=== PATIENT | male | born 1955 | race Caucasian/White ===

== ENCOUNTER 2017-05-19 08:03 | Day surgery (SDC) | payer OTHER, SELFPAY ==
[2017-05-14 10:43] VITALS: BMI 17.9
[2017-05-19 08:27] VITALS: BP 128/71; PULSE 58; RESP 18; TEMP 36.6; O2SAT 94
[2017-05-19 09:25] VITALS: O2SAT 98
[2017-05-19 09:55] VITALS: BP 99/57; PULSE 60; RESP 16; TEMP 36.4; O2SAT 100
--- NOTE | 2017-05-19 10:00 | P.PCN_ITS ---
[facility] Procedure Note Procedure Note:: Colonoscopy Procedure Report: Colonoscopy with cold snare polypectomy and cold biopsies Endoscopist: Henri Soliz II, MD Referring physician: Froy Huerta MD Date of Procedure: May 19, 2017 Equipment: Olympus 180 variable stiffness pediatric colonoscope Sedation: MAC sedation Indication: Mr. Hawley is a 61-year-old gentleman with chronic diarrhea and lymphocytic colitis. His last colonoscopy was November 2004. He did improve with Entocort and has used this as maintenance therapy for the last 13 years. He has one bowel movement daily as long as he takes budesonide. He smokes 3-5 cigarettes daily and reports no alcohol use since February 2017. He reports no abdominal pain, rectal bleeding, change in bowel habits or family history of colon cancer. Procedure: Prior to the procedure, a history and physical exam was performed, and patient' s medications and allergies were reviewed. The risks, benefits and alternatives of the sedation and procedure were discussed with the patient. All questions were answered and informed consent was obtained. The patient was brought to the procedure room. Patient identification and proposed procedure were verified by the physician and the nurse. The patient was placed in a left lateral decubitus position and the scope was passed under direct vision. Throughout the procedure, the patient's blood pressure, pulse, and oxygen saturations were monitored continuously. The colonoscopy was accomplished without difficulty. The patient tolerated the procedure well. Findings: On digital rectal examination there was normal rectal tone. There were no external hemorrhoids. The prostate was 2+, mildly firm but symmetric without nodules. The colonoscope was introduced through the anal canal to the rectum and advanced to the cecum. The ileocecal valve and appendiceal orifice were identified. The scope was advanced a short distance into the ileum which appeared grossly normal. The scope was then withdrawn into the colon. There were 2 diminutive colon polyps identified in the cecum and descending (placed in the same formalin jar). These ranged in size from 3-4 mm and were all removed via cold snare polypectomy. Cold biopsies were taken from the ascending colon ?4 to rule out lymphocytic or collagenous colitis. The remaining cecum, ascending, transverse, descending, sigmoid and rectum were grossly normal. There were no other mucosal abnormalities identified. Upon retroflexion within the rectum there were grade 1 internal hemorrhoids. Impression: 1. Diminutive colonic polyps ?2 2. Grade 1 internal hemorrhoids Plan: I will continue budesonide as maintenance therapy and follow up the biopsies. I will follow up the polyp pathology and recommend repeat colonoscopy again in 5 years based upon the polyp histology. The patient did have femoral artery stenosis (40 and 60% on bilateral femorals respectively) and his father had carotid artery disease. Given the fact that he is still a smoker and with these risk factors, I would consider calcium score CT scan of the neck, chest and abdomen as well as cardiology evaluation.
[2017-05-19 10:05] VITALS: BP 124/64; PULSE 55; RESP 18; O2SAT 100
[2017-05-19 10:15] VITALS: BP 142/70; PULSE 53; RESP 18; O2SAT 100
[2017-05-19 10:45] VITALS: BP 150/80; PULSE 47; RESP 18; O2SAT 100
--- NOTE | 2017-05-19 15:37 | P.PN_ITS ---
[facility] Anesthesia Checklist - Patient Identification Patient Identification: Arm Band - Structural Data Admitted From: Home Planned Operative Procedure/s: colonoscopy Consent for Planned Operative Procedure(s) Verified: Yes Verified Documents: Surgical Consent, History and Physical - NPO Status Verified Time NPO: 00:00 - Additional verifications Anesthesia Reactions: No - Airway Assessment C-Spine Mobility Assessed: Yes (mp2) TMJ Mobility Assessed: Yes Dentition: Good Dentition - Neurological Assessment Level of Consciousness: Awake, Alert - Anesthesia Plan Anesthesia Risk discussed: Yes Anesthesia Plan: Verified ASA Class: II Anesthesia Type: MAC [facility] Anesthesia HX I have reviewed the patient's past medical history: Yes Medical History: Denies:: Diabetes Mellitus Type 1, Diabetes Mellitus Type 2, Internal Pacemaker, Lung Disease, Seizures Laterality Cases: Bilateral: Tonsillectomy Other Surgeries: Yes: Appendectomy. No: Pacemaker
== END 2017-05-19 10:45 | disposition home or self-care (01) ==
PROVIDERS: PCP Internal Medicine; Visit Provider Internal Medicine Gastroenterology
PROC: 0DJD8ZZ Inspection of Lower Intestinal Tract, Via Natural or Artificial Opening Endoscopic (ICD-10-PCS; CPT 45378; principal; 2017-05-19 09:00)
DX: K52.832 Lymphocytic colitis (principal); K52.9 Noninfective gastroenteritis and colitis, unspecified; K63.5 Polyp of colon; K64.0 First degree hemorrhoids
CPT/HCPCS: 45380; 45385

== ENCOUNTER 2021-10-25 00:09 | Emergency (ER) | payer MEDICARE, OTHER, SELFPAY ==
[2021-10-25 00:11] VITALS: BP 147/79; PULSE 62; RESP 20; TEMP 36.9; O2SAT 97; BMI 17.4
--- NOTE | 2021-10-25 00:48 | HMH.EDWNDL ---
Discharge Plan Disposition Patient Disposition: Home, Self-Care Prescriptions Prescriptions: New cephalexin [cephalexin] 500 mg capsule 500 mg PO TID Qty: 30 0RF No Action budesonide 3 MG capsule,delayed,extend.release 3 mg PO DAILY Referrals Follow up/Referrals: Froy Huerta MD [Primary Care Provider] - See instructions Clinical Impressions Clinical Impression: Laceration Instructions Patient Instructions: DI for Laceration Repair Discharge ED Provider: Abhilash Martínez Wound/Laceration HPI General Chief Complaint: Wound/Laceration Stated Complaint: AO 10/24/21 1730 Injury to lower lip Time Seen by Provider: 10/25/21 00:48 Mode of Arrival: Family Vehicle Source of Information: Patient and Medical Record Limitations: No Limitations Description of Symptoms (Recalled from ER Triage Doc. by RN): Pt c/o lower lip lac. States he was cutting a tree limb whne it bit his mouth. This occured around 1730 10/24. He takes Plavix. States it has not stopped bleeding. History of Present Illness HPI narrative: mouth lac after hit by tree limb with ongoing bleeding Onset (ago): hour(s) Location: other (oral) Place: home Patient tetanus UTD: Yes Context: accidental Related Data Home Medications Medication Instructions Recorded Confirmed budesonide 3 mg 3 mg PO DAILY BOWELS 05/19/17 05/19/17 capsule,delayed,extended release Previous Rx's Medication Instructions Recorded cephalexin 500 mg capsule 500 mg PO TID #30 caps 10/25/21 Allergies Allergy/AdvReac Type Severity Reaction Status Date / Time No Known Allergies Allergy Verified 05/19/17 08:25 PFSH PFSH Social History Smoking Status: Current some day smoker alcohol intake: never current occupational status: employed caffeine: Yes ROS Obtained: Yes All systems reviewed & no additional complaints except as documented Physical Exam General General appearance: alert Head Head exam: normocephalic Eye Eye exam: Present PERRL and EOMI Expanded ENT Exam Mouth exam: Present laceration Neck Neck exam: Present full ROM and trachea midline Respiratory Respiratory exam: Absent respiratory distress Cardiovascular Cardiovascular exam: Present regular rate Extremities Exam Extremities exam: Present full ROM Neurological Exam Neurological exam: Present alert, oriented X3 and CN II-XII intact Psychiatric Psychiatric exam: Present normal affect Skin Skin exam: Absent rash Other Other exam information: 1 cm lt lower inner lip lac Medical Decision Making Medical Records Medical records reviewed: Yes I reviewed the patient's medical records. David Inquiry Pt receiving controlled substance: No Vital Signs: 10/25/21 00:11 Temperature 98.5 F Temperature Source Oral Pulse Rate [Right] 62 Respiratory Rate 20 Blood Pressure [Right Arm] 147/79 H Blood Pressure Mean [Right Arm] 101 Blood Pressure Source [Right Arm] Automatic Cuff 02 Sat by Pulse Oximetry 97 Oxygen Delivery Method Room Air Lab Data Lab results reviewed: Yes I reviewed the patient's lab results. Medical Decision Narrative: will suture as has persistent bleeding Procedures Laceration Laceration 1: Site: other (inner lip ) Side (If applicable): left Size (cm): 1 Description: linear Depth: involves subcutaneous layer Local Anesthetic: lidocaine 1% Amount of anesthesia used (mL): 2 Pre-repair: deep structures intact Skin layer closed with: vicryl Size (cm): 5-0 Number of sutures: 2 Technique: simple, interrupted Critical Care Time Critical Care Time Critical Care Time: No Attestation: The high probability of a clinically significant, sudden or life threatening deterioration of the [] system(s) required my full and direct attention, intervention and personal management. The aggregate critical care time was [] minutes. This time is in addition to time spent performing
[2021-10-25 01:00] VITALS: BP 149/73; PULSE 74; RESP 17; TEMP 36.7; O2SAT 95
== END 2021-10-25 01:03 | disposition home or self-care (01) ==
PROVIDERS: Emergency Provider Emergency Medicine; PCP Internal Medicine
DX: S01.511A Laceration without foreign body of lip, initial encounter (principal); W20.8XXA Other cause of strike by thrown, projected or falling object, initial encounter
CPT/HCPCS: 12011; 99283

== ENCOUNTER 2022-06-14 13:21 | Emergency (ER) | payer MEDICARE, OTHER, SELFPAY ==
[2022-06-14 13:40] VITALS: BP 141/86; PULSE 80; RESP 18; TEMP 36.8; O2SAT 97; BMI 17.9
[2022-06-14 13:41] VITALS: BP 141/86; PULSE 80; RESP 18; O2SAT 97; BMI 17.9
--- NOTE | 2022-06-14 13:49 | XR_ITS ---
FINAL REPORT CLINICAL HISTORY: HIT CABAN WITH PIECE OF WOOD COMPARISON: None FINDINGS: Two views of the left tib-fib were obtained. There is no acute fracture or dislocation. The joint spaces are intact. There is no soft tissue abnormality. IMPRESSION: No acute fracture Reviewed, Interpreted and Dictated by Monroe Barone III, MD Transcribed by Brenna Deal Authenticated and [facility]
--- NOTE | 2022-06-14 14:09 | EXP.UTC ---
Discharge Plan Referrals Follow up/Referrals: Froy Huerta MD [Primary Care Provider] - See instructions Activity Restrictions/Add. Instructions Additional Instructions/Restrictions: Rest, ice, compression, elevation Clinical Impressions Clinical Impression: Contusion of left lower leg Instructions Patient Instructions: DI for Contusion Discharge ED Provider: Rebecca Silverio [facility] HPI General Stated complaint: AO@home 06/13 LT fibula pain Mode of Arrival: Ambulatory Source of Information: Patient Limitations: No Limitations Time Seen by Provider: 06/14/22 14:21 Description of Symptoms (Recalled from Triage Doc. by RN): c/o left kc pain/swelling after hitting it with a piece of wood while splitting, incident occured yesterday around 1500 History of Present Illness Provider Complaint: Patient was splitting wood yesterday and struck left kc with wood. Has pain, swelling. It has caused him to limp. He twisted his knee a bit when he fell and was worried about his meniscus, but that seems to be feeling better. He has had leg iced since this occurred. He does take Plavix. Onset (ago): day(s) (1) Location: left and lower extremity Radiation: non-radiation Relieving factors: none Exacerbating factors: none Treatments prior to arrival: cold therapy Related Data Allergies Allergy/AdvReac Type Severity Reaction Status Date / Time No Known Allergies Allergy Verified 06/14/22 13:49 Worker's Comp Is this a Worker's Comp case?: No [facility] Disclaimer: The information contained in this section may have been updated after the patient was seen, as this information can be updated by other users. Social History Smoking Status: Former smoker alcohol intake: never current occupational status: retired Travel in the last 8 weeks: None ROS Obtained: Yes All systems reviewed & no additional complaints except as documented Musculoskeletal Musculoskeletal: Reports system reviewed and no additional complaints, except as documented and Reports as per HPI Physical Exam General General appearance: alert and in no apparent distress Head Head exam: atraumatic, normocephalic and normal inspection Respiratory Respiratory exam: Present normal lung sounds bilaterally; Absent respiratory distress Cardiovascular Cardiovascular exam: Present regular rate and normal rhythm; Absent JVD Extremities Exam Extremities exam: Present normal inspection, full ROM, tenderness, normal capillary refill and edema; Absent calf tenderness Expanded Lower Extremity Exam Left: Lower leg exam: Present tenderness, swelling and abrasion Gait: observed and limited by pain Back Exam Back exam: Present normal inspection; Absent tenderness Neurological Exam Neurological exam: Present alert and oriented X3 Psychiatric Psychiatric exam: Present normal affect and normal mood Skin Skin exam: Present warm, dry, intact and normal color Lymphatic Lymphatic Findings: no adenopathy Medical Decision Making David Inquiry Pt receiving controlled substance: No Vital Signs: 06/14/22 13:41 06/14/22 13:40 Temperature 98.2 F Temperature Source Oral Pulse Rate [Left Radial] 80 80 Respiratory Rate 18 18 Blood Pressure [Right Arm] 141/86 H 141/86 H Blood Pressure Mean [Right Arm] 104 104 Blood Pressure Source [Right Arm] Automatic Cuff Blood Pressure Position [Right Arm] Sitting 02 Sat by Pulse Oximetry 97 97 Oxygen Delivery Method Room Air Room Air Orders (Tests/Meds): ORDERS Category Date Time Status Tibia/fibula XR left 2 views [XR tibia fibula LT 2V] Exams 06/14/22 13:49 Taken Stat Radiology Data #1: Image(s): Tib/Fib Image Reviewed: Yes I reviewed the patient's radiology image Preliminary Findings: Normal/NAD and No Fracture Seen
[2022-06-14 14:38] VITALS: BP 141/86; PULSE 80; RESP 18; TEMP 36.8
== END 2022-06-14 14:39 | disposition home or self-care (01) ==
PROVIDERS: Emergency Provider Physician Assistant; PCP Internal Medicine
DX: S80.12XA Contusion of left lower leg, initial encounter (principal); W22.8XXA Striking against or struck by other objects, initial encounter; Z87.891 Personal history of nicotine dependence
CPT/HCPCS: 73590; 99204; 99212; G0463

== ENCOUNTER → 2022-08-13 09:52 | Outpatient (CLI) | payer MEDICARE, OTHER, SELFPAY ==
--- NOTE | 2022-08-13 09:52 | MR_ITS ---
FINAL REPORT CLINICAL HISTORY: stress fracture possible fracture from june 13 in mid lower leg , pt was splitting wood FINDINGS: Multiplanar MR imaging of the left lower leg was performed without contrast. There is extensive abnormal marrow edema within the intramedullary space of the proximal tibial diaphysis. Abnormality spans over a 12 cm segment area there are rounded decreased signal foci within the edema that may be a permeative process. There is no discrete linear abnormality. There is no soft tissue mass surrounding the proximal tibia. IMPRESSION: Extensive abnormal marrow edema in the proximal tibial diaphysis. Differentials would include infectious or neoplastic etiologies. Recommend correlation with any known history of malignancy. Osteomyelitis would be another consideration. Pattern is not entirely typical or stress reaction. Reviewed, Interpreted and Dictated by Natan Caceres MD Transcribed by Zaire Cristobal Authenticated and [facility]
== END ==
PROVIDERS: PCP Internal Medicine; Visit Provider Orthopaedic Surgery
DX: S80.12XA Contusion of left lower leg, initial encounter (principal); M79.662 Pain in left lower leg
CPT/HCPCS: 73718

== ENCOUNTER → 2022-09-02 08:57 | Outpatient (CLI) | payer MEDICARE, OTHER, SELFPAY ==
[2022-09-02 09:54] LABS: Blood Urea Nitrogen 9 mg/dl (9-20); Estimated Glomerular Filt Rate 112 ml/min (>60); GFR (African American) 136 ML/MIN (>60)
== END ==
PROVIDERS: PCP Internal Medicine; Visit Provider Orthopaedic Surgery
DX: Z01.812 Encounter for preprocedural laboratory examination (principal); R93.6 Abnormal findings on diagnostic imaging of limbs
CPT/HCPCS: 36415; 82565; 84520

== ENCOUNTER → 2022-09-13 09:45 | Outpatient (CLI) | payer MEDICARE, OTHER, SELFPAY ==
--- NOTE | 2022-09-13 09:46 | MR_ITS ---
FINAL REPORT CLINICAL HISTORY: LT leg pain INJURY ON May BB MARKER PLACED ON SPOT OF INTREST PER PATIENT 12 ML PROHANCE GIVEN COMPARISON: 08/21/2022 FINDINGS: MR examination left lower leg with and without contrast: There is improved bone marrow edema involving the proximal and mid left tibia when compared to the prior exam of August 16. There is no periosteal reaction identified. There is no convincing soft tissue mass present in the lower leg. The signal within the muscles of the lower leg is unremarkable. There is no fluid collection and the soft tissues. After the administration of intravenous contrast there is enhancement of the bone marrow in the areas of bone marrow edema. There is no enhancing intraosseous mass, and the soft tissues of the left calf do not reveal any abnormal enhancement. IMPRESSION: There is improvement in the abnormal signal in the bone marrow of the proximal mid tibia. Would favor improving osteomyelitis. No history of malignancy was provided, although treatment related changes of malignancy could have this appearance. Traumatic contusion presumably would have shown more improvement by this stage. . Reviewed, Interpreted and Dictated by Laurie Kelly MD Transcribed by Tia Abad Authenticated and . [facility]
== END ==
PROVIDERS: PCP Internal Medicine; Visit Provider Orthopaedic Surgery
DX: S80.12XA Contusion of left lower leg, initial encounter (principal)
CPT/HCPCS: 73720; A9576

== ENCOUNTER → 2023-01-08 14:46 | Outpatient (CLI) | payer MEDICARE, OTHER, SELFPAY ==
--- NOTE | 2023-01-08 14:47 | MR_ITS ---
FINAL REPORT CLINICAL HISTORY: lt tib fib pain COMPARISON: 09/13/2022 FINDINGS: Multiplanar MR imaging of the left lower leg was performed without contrast. There is persistent mild abnormal activity in the proximal tibial diaphysis but considerably improved over previous. No bony mass is identified. The musculature is intact. No localized soft tissue inflammation is identified. No soft tissue mass or cyst is identified. IMPRESSION: Persistent but improved abnormal signal in the proximal tibial diaphysis, probably related to resolving stress reaction or resolving infection. Reviewed, Interpreted and Dictated by Natan Caceres MD Transcribed by Brenna Deal Authenticated and [facility]
== END ==
PROVIDERS: PCP Internal Medicine; Visit Provider Orthopaedic Surgery
DX: S80.12XA Contusion of left lower leg, initial encounter (principal)
CPT/HCPCS: 73718